=== PATIENT | male | born 1970 | race Caucasian/White ===

== ENCOUNTER 2024-07-09 06:20 | Day surgery (SDC) | payer BC ==
[2024-07-09] MEDS: Lactated Ringers 1,000 ML IV SCH (06:33)
[2024-07-09 07:05] VITALS: RESP 14
[2024-07-09 07:33] LABS: ANION GAP 13.9 MEQ/L (5-15); Calcium 8.9 mg/dL (8.4-10.2); Creatinine 1 0.89 mg/dL (0.66-1.25); EST GLOMERULAR FILTRATION RATE 103.1 ML/MIN; Potassium 3.7 mmol/L (3.5-5.1)
[2024-07-09] MEDS ORDERED: propofoL IV ONE (07:58)
[2024-07-09 08:37] VITALS: TEMP 98
[2024-07-09 08:53] VITALS: BP 127/83; PULSE 56; O2SAT 100
--- NOTE | 2024-07-12 08:26 | OP ---
SURGERY DATE/TIME: 07/09/2024 [id number] PREOPERATIVE DIAGNOSIS: Screening exam. POSTOPERATIVE DIAGNOSIS: Normal colon. PROCEDURE: Colonoscopy. SURGEON: Ernesto Jean Baptiste MD ANESTHESIA: Medications were given by the anesthesia department. INDICATIONS: The patient is a 54-year-old white male presenting for screening colonoscopy. The patient was apprised of risks of the procedure and risks of perforation, phlebitis, untoward reaction to medication, and missed lesions. The patient verbalized his understanding and desired to have the procedure performed. DESCRIPTION OF PROCEDURE AND FINDINGS: Patient was given medication by the anesthesia department. He had continuous pulse oximetry, ECG monitoring, and intermittent blood pressure monitoring during the examination. He was placed in the left lateral decubitus position. Digital rectal examination was performed and revealed normal anal sphincter tone, no masses, and normal prostate. The flexible Olympus videocolonoscope was used to intubate the rectum. A view of the colon was developed sequentially to the cecum. Upon insertion and withdrawal, including a retroflexed view in the rectum, no mucosal lesions were encountered. The scope was removed from the patient who tolerated the procedure well and was sent back to outpatient recovery in good condition. The prep was noted to be fair.
== END 2024-07-09 08:59 | disposition home or self-care (01) ==
LOC: SDC 06:20
PROVIDERS: ATTEND Family Medicine
DX: Z12.11 Encounter for screening for malignant neoplasm of colon (principal); I10 Essential (primary) hypertension
CPT/HCPCS: 36415; 80048; 93005; J2704